=== PATIENT | male | born 1990 | race African-American/Black ===

== ENCOUNTER 2017-12-28 19:45 | Emergency (ER) | payer OTHER ==
[2017-12-28 20:01] VITALS: BP 122/78; PULSE 100; TEMP 98; BMI 27.6
[2017-12-28] MEDS ORDERED: IBUPROFEN 400 MG TABLET (FP) PO ONE ×2 (20:19→20:21)
--- NOTE | 2017-12-28 21:43 | PDOC ---
History of Present Illness - General Chief Complaint: Injury Stated Complaint: LEFT HAND INJURY Time Seen by Provider: 12/28/17 20:19 History Source: Patient Exam Limitations: No Limitations - History of Present Illness Initial Comments: 12/28/17 21:43 HISTORY OF PRESENT ILLNESS: 27-year-old male without significant past medical history presents emergency Department with left thumb pain for 3 days. 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 Patient was seen at an urgent care center had negative x-rays and was given a prescription for Motrin to treat the pain. Patient presents now with worsening pain even after taking Motrin and increased swelling to the thumb. Patient rates his pain 10/10 and describes it as a throbbing sensation extending from the base of his left thumb to the tip. No recent travel or sick contacts. PAST MEDICAL HISTORY: Denies past medical history SURGICAL HISTORY: Denies ALLERGIES: No known drug allergies REVIEW OF SYSTEMS General/Constitutional: Denies fever or chills. Denies weakness, weight change. HEENT: Denies change in vision. Denies ear pain or discharge. Denies sore throat. Cardiovascular: Denies chest pain or shortness of breath. Respiratory: Denies cough, wheezing, or hemoptysis. Gastrointestinal: Denies nausea, vomiting, diarrhea or constipation. Denies rectal bleeding. Genitourinary: Denies dysuria, frequency, or change in urination. Musculoskeletal: Left thumb swelling and pain. Denies neck or back pain. Skin and breasts: Denies rash or easy bruising. Neurologic: Denies headache, vertigo, loss of consciousness, or loss of sensation. Psychiatric: Denies depression or anxiety. Endocrine: Denies increased thirst. Denies abnormal weight change. Hematologic/Lymphatic: Denies anemia, easy bleeding, or history of blood clots. Allergic/Immunologic: Denies hives or skin allergy. Denies latex allergy. PHYSICAL EXAM General Appearance: Well-appearing, appropriately dressed. No apparent distress , no intoxication. HEENT: EOMI, PERRLA, normal ENT inspection, normal voice, TMs normal, pharynx normal. No conjunctival pallor. No photophobia, scleral icterus. Neck: Supple. Trachea midline. No tenderness, rigidity, carotid bruit, stridor , lymphadenopathy, or thyromegaly. Respiratory/Chest: Lungs CTAB. No shortness of breath, chest tenderness, respiratory distress, accessory muscle use. No crackles, rales, rhonchi, stridor , wheezing, dullness Cardiovascular: RRR. S1, S2. No JVD, murmur, bradycardia, tachycardia. Vascular Pulses: Dorsalis-Pedis (R): 2+, Dorsalis-Pedis (L): 2+ Gastrointestinal/Abdominal: Normal bowel sounds. Abdomen soft, non-distended. No tenderness or rebound tenderness. No organomegaly, pulsatile mass, guarding, hernia, hepatomegaly, splenomegaly. Lymphatic: No adenopathy, tenderness. Musculoskeletal/Extremities: Normal inspection. FROM of all extremities, normal capillary refill. Pelvis Stable. No CVA tenderness. No deformity present to left thumb. Significant swelling noted around the proximal cuticle and to the volar surface of the left thumb over the distal phalanx extending to the MCP joint. Tender to light palpation over the volar surface of the left thumb at the distal phalanx. Patient with decreased flexion and extension. Capillary refill is less than 2 seconds. Integumentary: Appropriate color, dry, warm. No cyanosis, erythema, jaundice or rash Neurologic: line dancer II-XII intact. Fully oriented, alert. Appropriate mood/affect. Motor strength 5/5. No appreciable EOM palsy, facial droop or sensory deficit. Past History - Past Medical History Allergies/Adverse Reactions: Allergies Allergy/AdvReac Type Severity Reaction Status Date / Time No Known Allergies Allergy Verified 12/28/17 19:49 Home Medications: Ambulatory Orders Cephalexin Monohydrate [Keflex -] 500 mg PO Q6H #40 capsule 12/28/17 Ibuprofen [Motrin -] 400 mg PO QID 12/28/17 COPD: No Seizures: Yes - Suicide/Smoking/Psychosocial Hx Smoking History: Current every day smoker Number of Cigarettes Smoked Daily: 5 Information on smoking cessation initiated: No 'Breaking Loose' booklet given: 12/19/16 Hx Alcohol Use: Yes (SOCIAL) Drug/Substance Use Hx: No *Physical Exam - Vital Signs Last Vital Signs Temp Pulse Resp BP Pulse Ox 98 F 100 H 18 122/78 99 12/28/17 19:46 12/28/17 19:46 12/28/17 19:46 12/28/17 19:46 12/28/17 19:46 ED Treatment Course - RADIOLOGY Radiology Studies Ordered: Category Date Time Status HAND- LEFT [RAD] Stat Radiology 12/28/17 20:23 Taken - Medications Given in the ED: ED Medications Discontinued Medications Generic Name Dose Route Start Last Admin Trade Name Nancy PRN Reason Stop Dose Admin Ibuprofen 800 mg 12/28/17 20:19 12/28/17 20:25 Motrin - PO 12/28/17 20:20 800 mg ONCE ONE Administration Medical Decision Making - Medical Decision Making 12/28/17 21:47 A/P: 27-year-old man with left thumb swelling and pain. 3 days No deformity present to left thumb Significant swelling noted around the proximal cuticle and to the volar surface of the left thumb over the distal phalanx extending to the MCP joint Tender to light palpation over the volar surface of the left thumb at the distal phalanx Patient with decreased flexion and extension Capillary refill is less than 2 seconds. Fracture versus felon X-rays, Motrin, reassess X-rays as read by me: No acute fractures or dislocations noted significant soft tissue swelling present along the volar aspect of the left thumb on both the proximal and distal phalanx. 12/28/17 23:05 Patient with felon on exam. EM resident Dr. Fonseca to perform I&D. I will discharge the patient home after I&D with prescription for IV antibiotics and follow-up with hand surgeon. *DC/Admit/Observation/Transfer Diagnosis at time of Disposition: Felon of finger of left hand - Discharge Dispostion Disposition: HOME Condition at time of disposition: Stable Decision to Admit order: No - Prescriptions Prescriptions: Cephalexin Monohydrate [Keflex -] 500 mg PO Q6H #40 capsule - Referrals Referrals: Clark Miller MD [Staff Physician] - - Patient Instructions Additional Instructions: You have been prescribed an antibiotic Keflex. Take one pill 4 times a day until all medications have been completed. You have been given a referral for a hand specialist Dr. Miller. Call to make an appointment for follow-up next week. Return to emergency department for any worsening pain, fevers, chills, worsening swelling, red streaks up your arm or any other concerns. - Post Discharge Activity Forms/Work/School Notes: Back to Work
== END 2017-12-29 01:23 | disposition home or self-care (01) ==
LOC: JERFT 19:45 → JER 19:45
DX: L03.012 Cellulitis of left finger (principal); W23.0XXA Caught, crushed, jammed, or pinched between moving objects, initial encounter; Y93.89 Activity, other specified; Y92.512 Supermarket, store or market as the place of occurrence of the external cause; Y99.0 Civilian activity done for income or pay
CPT/HCPCS: 73130-TC-LR-FY; 87070; 87205; 99281-25